=== PATIENT | female | born 1965 | race Two or more races ===

== ENCOUNTER 2022-10-20 18:56 | Emergency (ER) | payer OTHER ==
[~2022-10-20] VITALS: Ht 160 cm; Wt 54.4 kg
[2022-10-20] MEDS ORDERED: NEXIUM2.5 MG PO (18:59)
[2022-10-20] MEDS ORDERED: CLONAZEPAM0.125 MG PO (18:59)
[2022-10-21] MEDS ORDERED: PROTONIX20 MG PO (03:39)
[2022-10-21] MEDS ORDERED: CARAFATE1 GM PO (03:39)
[2022-10-21] MEDS ORDERED: PEPCID AC20 MG PO (03:39)
== END 2022-10-21 07:42 | disposition home or self-care (01) ==
LOC: ER 18:56
PROVIDERS: Nurse Practitioner Family
DX: K29.60 Other gastritis without bleeding (principal); K57.30 Diverticulosis of large intestine without perforation or abscess without bleeding; Z88.8 Allergy status to other drugs, medicaments and biological substances

== ENCOUNTER 2024-11-13 11:33 | Outpatient (CLI) | payer OTHER ==
[~2024-11-13 11:33] MED LIST: CARAFATE1 GM PO; CLONAZEPAM0.125 MG PO; NEXIUM2.5 MG PO; PEPCID AC20 MG PO; PROTONIX20 MG PO
== END 2024-11-13 11:41 | disposition home or self-care (01) ==
LOC: SONOGRAMA 11:33
PROVIDERS: ATTEND Surgery
DX: C50.811 Malignant neoplasm of overlapping sites of right female breast (principal)